=== PATIENT | female | born 1955 | race Hispanic/Latino ===

== ENCOUNTER 2018-09-16 08:03 | Emergency (ER) | payer OTHER ==
[2018-09-16 08:18] VITALS: BMI 24.2
--- NOTE | 2018-09-16 08:41 | ED PDOC ---
Arrival/HPI - General Historian: Family (sister), EMS - History of Present Illness Narrative History of Present Illness (Text): 09/16/18 08:20 A 63 year old female, with no known past medical history, brought into the emergency department 08:01 for cardiac arrest. Patient's daughter in law arrives to the ER along with patient as well. EMS intubated patient, gave no shock, and administered epi x 4, last one given prior to entering the ER. Per EMS, sister told them patient normally wakes up every morning at approximately 06:00. This morning, sister found patient on the living room floor unconscious and not breathing, and started CPR, afterwards called 911. EMS received dispatch at 07:30. Per sister, patient was last seen normal last night, however yesterday was complaining of chest/epigastric pain. Offered patient to be taken to the hospital but patient refused at the time. 09/16/18 20:21 Past Medical History - Provider Review Nursing Documentation Reviewed: Yes - Cardiac Hx Cardiac Disorders: No - Pulmonary Hx Respiratory Disorders: No - Neurological Hx Neurological Disorder: No - HEENT Hx HEENT Disorder: No - Renal Hx Renal Disorder: No - Endocrine/Metabolic Hx Endocrine Disorders: No - Hematological/Oncological Hx Blood Disorders: No - Integumentary Hx Dermatological Disorder: No - Musculoskeletal/Rheumatological Hx Musculoskeletal Disorders: No - Gastrointestinal Hx Gastrointestinal Disorders: No - Genitourinary/Gynecological Hx Genitourinary Disorders: No - Psychiatric Hx Psychophysiologic Disorder: No Hx Substance Use: No Family/Social History - Physician Review Nursing Documentation Reviewed: Yes Family/Social History: No Known Family HX Smoking Status: Never Smoked Hx Alcohol Use: No Hx Substance Use: No Allergies/Home Meds Allergies/Adverse Reactions: Allergies No Known Allergies Allergy (Verified 09/16/18 08:13) Home Medications: Home Meds Medication Instructions Recorded Confirmed No Known Home Med 09/16/18 09/16/18 Review of Systems - Review of Systems Systems not reviewed;Unavailable: Other (cardiac arrest) Physical Exam Finger Stick Blood Glucose: 264 - Systems Exam Pupils: Present: Non-Reactive, Other (fixed and dilated) Mouth: Present: Moist Mucous Membranes Pharnyx: Present: Other (intubated) Nose (External): Present: Abrasion (bridge of nose) Respiratory/Chest: Present: Clear to Auscultation, Other (intubated) Cardiovascular: Present: Other (CPR in process) Abdomen: No: Distention Upper Extremity: No: Swelling Lower Extremity: No: Swelling Neurological: Present: Other (non-reactive, GCS3) Medical Decision Making ED Course and Treatment: Per EMS pt was given x4 EPI, 700cc NS in the field and was initially in PEA. No shockable rythmn. Per EMS: Pt found down, last seen normal last night. Per family pt had chest pain/epigastric pain yesterday and was recommended by family to come in to be evaluated. Pt noted feeling better yesterday and did not come in. EMS notes probable 20-30 minute transfer time. 08:01 4th EPI given per EMS CPR continued 08:05 Tube confirmed w/ good b/l LS 1st Epi given CPR continued 08:07 POC glucose: 264 pulse check, rythmn check Bedside Ultrasound without cardiac wall motion Monitor showed asystole CPR restarted 08:09 2nd Epi Given CPR continued 08:12 pulse check, rythmn check Bedside Ultrasound without cardiac wall motion Monitor showed asystole Time of called - Scribe Statement The provider has reviewed the documentation as recorded by the Carlosibzeeshan Gutierrez Provider Scribe Attestation: All medical record entries made by the Scribe were at my direction and personally dictated by me. I have reviewed the chart and agree that the record accurately reflects my personal performance of the history, physical exam, medical decision making, and the department course for this patient. I have also personally directed, reviewed, and agree with the discharge instructions and disposition. Disposition/Present on Arrival - Present on Arrival Any Indicators Present on Arrival: No History of DVT/PE: No History of Uncontrolled Diabetes: No Urinary Catheter: No History of Decub. Ulcer: No History Surgical Site Infection Following: None - Disposition Have Diagnosis and Disposition been Completed?: Yes Diagnosis: Cardiac arrest Disposition: WITH WITHOUT AUTOPSY Disposition Time: 08:12 Condition: Forms: [employer] (Cuban)
== END 2018-09-16 11:30 ==
LOC: ED 08:03
DX: I46.9 Cardiac arrest, cause unspecified (principal)